=== PATIENT | male | born 1960 | race Caucasian/White ===

== ENCOUNTER 2019-12-10 11:23 | Outpatient (CLI) | payer OTHER, SELFPAY ==
--- NOTE | 2019-12-10 13:27 | PFTS_ITS ---
Date of Study:12/10/19 Date of Dictation: MECHANICS: Forced vital capacity (FVC) is reduced. Forced expiratory volume in one second (FEV1) is normal. FEV1/FVC is normal. FLOW VOLUME LOOP: There is a plateau after the initial peak expiratory flow which could be suggestive of intrathoracic variable obstruction. LUNG VOLUMES: Not performed DIFFUSING CAPACITY FOR CARBON MONOXIDE: Not performed INTERPRETATION: Spirometry is consistent with minimal restriction. The flow volume loop demonstrates a plateau after the peak expiratory flow which could be suggestive of variable intrathoracic obstruction. An endobronchial lesion cannot produce such flow volume loop. MTDD
== END 2019-12-10 11:24 | disposition home or self-care (01) ==
LOC: RT 11:29
PROVIDERS: PCP Nurse Practitioner Family; Visit Provider Nurse Practitioner Family
DX: R05 Cough (principal)
CPT/HCPCS: 94010

== ENCOUNTER 2021-06-08 14:06 | Outpatient (CLI) | payer OTHER, SELFPAY ==
--- NOTE | 2021-06-08 14:14 | XR_ITS ---
WS: [id number] Exam: [place] [id number] Date/Time of Exam: 06/08/2021 2:14 PM Reason For Exam: PAIN IN LEFT UPPER ARM Findings: There are no fractures or bone anomalies. The bony elements are in adequate alignment. There are no soft tissue calcifications or infiltration. The joint spaces are smooth and intact. XR/[place] [id number] IMPRESSION: Negative left humerus.
== END 2021-06-08 14:07 | disposition home or self-care (01) ==
PROVIDERS: PCP Nurse Practitioner Family; Visit Provider Family Medicine
DX: M79.622 Pain in left upper arm (principal)
CPT/HCPCS: 73060

== ENCOUNTER 2022-03-10 10:27 | Emergency (ER) | payer OTHER, SELFPAY ==
--- NOTE | 2022-03-10 10:34 | XRR_ITS ---
PROCEDURE INFORMATION: Exam: XR Chest Exam date and time: 03/10/2022 11:06 AM Age: 61 years old Clinical indication: Chest pain/pressure. TECHNIQUE: Imaging protocol: Radiologic exam of the chest. Views: 1 view. COMPARISON: No relevant prior studies available. FINDINGS: Lungs: No pulmonary consolidation. Pleural spaces: No pleural effusion. No pneumothorax. Heart/Mediastinum: The cardiac silhouette is unremarkable. No gross evidence of pneumomediastinum. Bones/joints: No gross fracture. XR/XR chest 1V portable [id number] IMPRESSION: No acute cardiopulmonary abnormality identified.
--- NOTE | 2022-03-10 10:34 | XRR_ITS ---
PROCEDURE INFORMATION: Exam: XR Abdomen Exam date and time: 03/10/2022 11:06 AM Age: 61 years old Clinical indication: Generalized abdominal pain with diarrhea. Appendicitis. TECHNIQUE: Imaging protocol: Radiologic exam of the abdomen. Views: Frontal supine view of the abdomen. 1 View. COMPARISON: [facility] Abdomen Limited 10/16/2018 9:21 AM FINDINGS: Gastrointestinal tract: No gross small bowel obstruction by plain radiograph. Intraperitoneal space: No definite free air. Bones/joints: No gross acute fracture. XR/XR KUB portable [id number] IMPRESSION: 1. Suboptimal plain radiographs with incomplete evaluation of the abdomen. 2. Ileitis and possible partial small bowel obstruction identified on CT are not well visualized by plain radiograph. Findings discussed with BARBER WEAVER at 03/10/2022 12:23 PM CDT.
--- NOTE | 2022-03-10 10:35 | ECG_ITS ---
[facility] Test Date: 2022-03-10 Pat Name: Derek Jaquez Department: Room: Gender: Male Information Consultant: : 1960 Requested By: Chucky Jo Order Number: [id number] Akash MD: Hakeem Mccrary M.D. Measurements Intervals [place] Rate: 90 P: 26 RI: 168 QRS: 15 QRSD: 105 T: 8 QT: 355 QTc: 435 Interpretive Statements SINUS RHYTHM No previous ECG available for comparison Electronically Signed On 03-10-2022 13:16:45 CDT by Hakeem Mccrary M.D. [id number]
[2022-03-10 10:36] VITALS: BP 120/80; PULSE 86; RESP 18; TEMP 36.5; O2SAT 99; BMI 27.9
--- NOTE | 2022-03-10 10:59 | ED_ITS ---
HPI - Chest Pain General: Chief Complaint: Chest Pain Stated Complaint: Chest pain Time Seen by Provider: 03/10/22 10:34 History of Present Illness: 61-year-old male presents with generalized malaise, chest pain, shortness of breath, diarrhea. He reports his symptoms started during the night. The had an episode of some chills, feeling cold clammy. Last week he was having some problems with abdominal pain in which he was doubled over with pain. That the pain subsided. He denies any nausea or vomiting. Patient also complains of just generalized weakness and not feeling well. He has no known sick contacts. Associated symptoms: Reports dyspnea; Deny abdominal pain, nausea or vomiting Review of Systems Const: Reports: chills, fatigue and malaise Eyes: Denies: change in vision or photophobia ENMT: Denies: throat pain or ear or mastoid pain Card: Reports: chest pain; Denies: edema or lightheadedness Resp: Reports: dyspnea; Denies: productive cough or wheezing GI: Reports: diarrhea; Denies: abdominal pain, nausea or vomiting : Denies: flank pain or difficulty urinating Musc: Denies: neck pain or back pain Skin/Breast: Denies: rash or pruritus Neuro: Reports: other (Generalized weakness); Denies: headache(s) or numbness in extremities Physical Exam Const: COMMON NORMALS: no acute distress and patient oriented x3 GENERAL APPEARANCE: not in distress HENMT: COMMON NORMALS: hearing grossly normal bilaterally and moist oral mucous membranes Eye: COMMON NORMALS: Equal, round and reactive pupils present and EOMs intact bilaterally PUPIL: Yes Equal, round and reactive pupils present Resp: COMMON NORMALS: normal respiratory effort, No use of accessory muscles and clear to auscultation bilaterally AUSCULTATION: clear to auscultation bilaterally Cardio: COMMON NORMALS: regular rate and regular rhythm RATE: regular rate RHYTHM: regular rhythm GI: COMMON NORMALS: Normal to inspection, nondistended, normoactive bowel sounds present and Soft to palpation PALPATION: Yes Soft to palpation Extremity: COMMON NORMALS: normal to inspection, full ROM and capillary refill normal Neuro: COMMON NORMALS: patient oriented x3, CN's II-XII intact bilaterally, moves all extremities, no focal motor deficits and no sensory deficits noted Psych: COMMON NORMALS: mental status grossly normal, Normal thought process present and cooperative THOUGHT PROCESS: Normal thought process present Skin: COMMON NORMALS: no rashes or lesions noted GENERAL SKIN EXAM: no rashes or lesions noted Course Vital Signs: Vital signs: Vital Signs Temperature 97.7 F 03/10/22 10:36 Pulse Rate 86 03/10/22 10:36 Respiratory Rate 18 03/10/22 10:36 Blood Pressure 120/80 03/10/22 10:36 Pulse Oximetry 99 03/10/22 10:36 Oxygen Delivery Me thod 03/10/22 10:36 MDM - Chest Pain Medical Decision Making Patient with ileitis and possible low-grade partial small bowel obstruction. Patient however still having stool and not having any nausea or vomiting. This time patient would like to try to treat on outpatient basis. I will start him o n Cipro Flagyl with clear liquid diet for couple days. Patient understands that he should return with any nausea and vomiting or increasing abdominal pain without stool. Patient stable. Patient's sodium is likely chronic along with his elevation in AST ALT due to his frequent alcohol use. Patient was stable upon discharge Lab Data : 03/10/22 10:33 03/10/22 10:33 Radiology Impressions Chest X-Ray 03/10/22 10:34 IMPRESSION: No acute cardiopulmonary abnormality identified. KUB X-Ray 03/10/22 10:34 IMPRESSION: 1. Suboptimal plain radiographs with incomplete evaluation of the abdomen. 2. Ileitis and possible partial small bowel obstruction identified on CT are not well visualized by plain radiograph. Findings discussed with BARBER JO at 03/10/2022 12:23 PM CDT. Abdomen/Pelvis CT 03/10/22 11:31 IMPRESSION: 1. Wall thickening of numerous distal small bowel loops suspicious for ileitis. 2. A few dilated loops of bowel proximal to the site of inflammation suggesting superimposed low-grade partial small bowel obstruction. 3. The bladder wall is thickened. Considerations include partial bladder outlet obstruction or cystitis. Correlate with urinalysis. 4. Indeterminate right renal lesion. Recommend nonemergent MR abdomen renal mass protocol with and without contrast to better characterize. 5. Hepatomegaly. 6. Solid pulmonary nodules measuring up to 4 mm. As per Fleischner Society 2017 guidelines for follow-up and management of pulmonary nodules: For patients at low risk (minimal or absent history of smoking and of other known risk factors), no routine follow-up. For patient at high risk (history of smoking or of other known risk factors), recommend optional CT at 12 months. 7. Mild free fluid. COMMENTS: Consistent with the [employer]'s Incidental Findings Committee white paper (J Am Marjorie Radiol 2018): Any incidental renal lesion less than 1 cm or classified as too small to characterize, or any incidental cystic renal lesion characterized as simple-appearing, is likely benign. No follow-up imaging is recommended for these lesions per consensus recommendations based on imaging criteria. ADDENDUM: 03/10/22 1226 Findings discussed with BARBER JO at 03/10/2022 12:23 PM CDT. Laboratory Results WBC 11.8 10^3/uL (4.0-10.0) H 03/10/22 10:33 RBC 4.88 10^6/uL (4.1-5.3) 03/10/22 10:33 Hgb 15.5 g/dL (11.7-16.6) 03/10/22 10:33 Hct 45.1 % (42.0-52.0) 03/10/22 10:33 MCV 92.4 fl (80-94) 03/10/22 10:33 MCH 31.8 pg (28.0-34.0) 03/10/22 10:33 MCHC 34.4 g/dL (30.0-36.0) 03/10/22 10:33 RDW 12.1 % (12.1-15.1) 03/10/22 10:33 Plt Count 319 10^3/cmm (130-400) 03/10/22 10:33 MPV 10.5 fL (7.4-10.4) H 03/10/22 10:33 Neut % (Auto) 79.0 % 03/10/22 10:33 Lymph % (Auto) 11.0 % 03/10/22 10:33 Luna % (Auto) 8.9 % 03/10/22 10:33 Eos % (Auto) 0.3 % 03/10/22 10:33 Baso % (Auto) 0.5 % 03/10/22 10:33 Neut # (Auto) 9.36 10^3/uL (1.8-7.7) H 03/10/22 10:33 Lymph # (Auto) 1.3 10^3/uL (0.8-4.8) 03/10/22 10:33 Luna # (Auto) 1.1 10^3/uL (0.2-0.9) H 03/10/22 10:33 Eos # (Auto) 0.0 10^3/uL (0.0-0.8) 03/10/22 10:33 Baso # (Auto) 0.1 10^3/uL (0.0-0.1) 03/10/22 10:33 Nucleated RBC % (auto) 0 % 03/10/22 10:33 Nucleated RBCs # 0.0 /100WBC 03/10/22 10:33 Sodium 126 mmol/L (136-145) L 03/10/22 10:33 Potassium 3.8 mmol/L (3.5-5.1) 03/10/22 10:33 Chloride 89 mmol/L (98-107) L 03/10/22 10:33 Carbon Dioxide 21 mmol/L (22-29) L 03/10/22 10:33 Anion Gap 19.8 (5-19) H 03/10/22 10:33 BUN 13 mg/dL (8-23) 03/10/22 10:33 Creatinine 1.7 mg/dL (0.7-1.2) H 03/10/22 10:33 GFR Calculation 41.2 mL/min (90-130) L 03/10/22 10:33 Glucose 186 mg/dL (65-115) H 03/10/22 10:33 Calculated Osmolality 267 mOsm/kg (285-295) L 03/10/22 10:33 Calcium 9.4 mg/dL (8.5-10.5) 03/10/22 10:33 Magnesium 1.7 mg/dL (1.7-2.3) 03/10/22 10:33 Total Bilirubin 0.5 mg/dL (0.15-1.2) 03/10/22 10:33 AST 78 U/L (0-40) H 03/10/22 10:33 ALT 131 U/L (0-41) H 03/10/22 10:33 Alkaline Phosphatase 126 U/L (40-130) 03/10/22 10:33 Troponin T Baseline 12 ng/L (0-15) 03/10/22 10:33 C-Reactive Protein 3.8 mg/L (0.0-4.9) 03/10/22 10:33 Total Protein 7.9 g/dL (6.6-8.7) 03/10/22 10:33 Albumin 4.9 g/dL (3.5-5.2) 03/10/22 10:33 Globulin 3.0 g/dL (1.3-4.6) 03/10/22 10:33 Lipase 28 U/L (13-60) 03/10/22 10:33 EKG Data EKG 1: I personally reviewed and interpreted this EKG as follows: EKG interpretation date: 03/10/22 Interpretation: Normal sinus rhythm, heart rate 90, NE 168, QTc 402, no acute ST or T wave changes, normal EKG Discharge Plan Discharge Patient Disposition: Home Clinical Impression: Ileitis Condition: Stable Prescriptions: New ciprofloxacin HCl [Cipro] 500 mg tablet 500 mg PO BID Qty: 14 0RF metronidazole 500 mg tablet 500 mg PO BID 7 Days Qty: 14 0RF Discharge Orders: Discharge ED (Routine); Ordered 03/10/22 Ordered By: Barber Jo Referrals: Edward Mayorga DO [Primary Care Provider] - Discharge Diet: Clear Liquid Discharge Activity: Increase activity as tolerated Patient Instructions: Opioid Safety Activity Restrictions/Additional Instructions: Please use clear liquid diet for 48 hours and advance as tolerated. Return to ER with any increasing abdominal pain, vomiting or any other concerns. Please follow-up with your primary care provider towards in the next week for recheck Stand Alone Forms: Work/School Release Coding Level of Care Code ED Release And Technical Records Clerk for Marisabel Fwd Exam Comprehensive
[2022-03-10 11:04] LABS: Basophils # 0.1 10^3/uL (0.0-0.1); Basophils % 0.5 %; Eosinophils % 0.3 %; Hematocrit 45.1 % (42.0-52.0); Hemoglobin 15.5 g/dL (11.7-16.6); Lymphocytes # 1.3 10^3/uL (0.8-4.8); Mean Corpuscular HGB Conc 34.4 g/dL (30.0-36.0); Mean Corpuscular Hemoglobin 31.8 pg (28.0-34.0); Mean Corpuscular Volume 92.4 fl (80-94); Mean Platelet Volume 10.5 fL (7.4-10.4); Monocytes # 1.1 10^3/uL (0.2-0.9); Monocytes % 8.9 %; Neutrophils # 9.36 10^3/uL (1.8-7.7); Nucleated Red Blood Cells % 0 %; Platelet Count 319 10^3/cmm (130-400); Red Blood Count 4.88 10^6/uL (4.1-5.3); Red Cell Distribution Width 12.1 % (12.1-15.1); White Blood Count 11.8 10^3/uL (4.0-10.0)
[2022-03-10 11:17] LABS: Alanine Aminotransferase 131 U/L (0-41); Albumin Level 4.9 g/dL (3.5-5.2); Alkaline Phosphatase 126 U/L (40-130); Anion Gap 19.8 (5-19); Aspartate Amino Transferase 78 U/L (0-40); Blood Urea Nitrogen 13 mg/dL (8-23); C Reactive Protein 3.8 mg/L (0.0-4.9); Calcium 9.4 mg/dL (8.5-10.5); Carbon Dioxide 21 mmol/L (22-29); Chloride 89 mmol/L (98-107); Creatinine Clr Calc Pharmacy 54.1744; Glomerular Filtration Rate 41.2 mL/min (90-130); Glucose 186 mg/dL (65-115); Lipase 28 U/L (13-60); Magnesium 1.7 mg/dL (1.7-2.3); Osmolality Calculated 267 mOsm/kg (285-295); Potassium 3.8 mmol/L (3.5-5.1); Sodium 126 mmol/L (136-145); Total Bilirubin 0.5 mg/dL (0.15-1.2); Total Protein 7.9 g/dL (6.6-8.7)
[2022-03-10 11:18] LABS: Troponin(5th) Baseline 12 ng/L (0-15)
[2022-03-10] MEDS: sodium chloride 0.9% 1,000 ML 999 ML IV (11:24)
--- NOTE | 2022-03-10 11:31 | CTR_ITS ---
PROCEDURE INFORMATION: Exam: CT Abdomen And Pelvis Without Contrast Exam date and time: 03/10/2022 11:51 AM Age: 61 years old Clinical indication: Generalized abdominal pain. Appendicitis. TECHNIQUE: Imaging protocol: Computed tomography of the abdomen and pelvis without contrast. Radiation optimization: All CT scans at this facility use at least one of these dose optimization techniques: automated exposure control; mA and/or kV adjustment per patient size (includes targeted exams where dose is matched to clinical indication); or iterative reconstruction. COMPARISON: CR (ABDOMEN, ) 03/10/2022 11:06 AM RADIATION DOSE METRICS: Total DLP (mGy-cm): 873.72 FINDINGS: Lungs: There is a few small nodules at the right base measuring up to 4 mm. Solid pulmonary nodule in the left lower lobe measuring 2.9 mm. No pericardial effusion. Small hiatal hernia. Liver: The liver is enlarged measuring 19.9 cm. Gallbladder and bile ducts: The gallbladder is unremarkable. Pancreas: The pancreas is unremarkable. Spleen: The spleen is unremarkable. Adrenal glands: The adrenal glands are unremarkable. Kidneys and ureters: A simple left renal cyst measures 1.8 cm. No nephrolithiasis or hydronephrosis. Indeterminate right renal lesion measuring 1.3 cm. Stomach and bowel: There is wall thickening of numerous distal small bowel loops suspicious for ileitis. There are a few dilated loops of bowel proximal to the site of inflammation suggesting superimposed low-grade partial small bowel obstruction. The colon is unremarkable. Appendix: The appendix is not identified. Intraperitoneal space: No free intraperitoneal air is seen. Mild free pelvic fluid. Vasculature: No abdominal aortic aneurysm. Lymph nodes: No retroperitoneal lymphadenopathy. Urinary bladder: The bladder wall is thickened. Reproductive: The prostate measures 3.8 x 5.4 cm. Bones/joints: No acute fracture is seen. Soft tissues: Small fat containing umbilical hernia. Small fat containing left inguinal hernia. CT/CT abdomen pelvis wo con [id number] IMPRESSION: 1. Wall thickening of numerous distal small bowel loops suspicious for ileitis. 2. A few dilated loops of bowel proximal to the site of inflammation suggesting superimposed low-grade partial small bowel obstruction. 3. The bladder wall is thickened. Considerations include partial bladder outlet obstruction or cystitis. Correlate with urinalysis. 4. Indeterminate right renal lesion. Recommend nonemergent MR abdomen renal mass protocol with and without contrast to better characterize. 5. Hepatomegaly. 6. Solid pulmonary nodules measuring up to 4 mm. As per Fleischner Society 2017 guidelines for follow-up and management of pulmonary nodules: For patients at low risk (minimal or absent history of smoking and of other known risk factors), no routine follow-up. For patient at high risk (history of smoking or of other known risk factors), recommend optional CT at 12 months. 7. Mild free fluid. COMMENTS: Consistent with the [employer]'s Incidental Findings Committee white paper (J Am Majrorie Radiol 2018): Any incidental renal lesion less than 1 cm or classified as too small to characterize, or any incidental cystic renal lesion characterized as simple-appearing, is likely benign. No follow-up imaging is recommended for these lesions per consensus recommendations based on imaging criteria.
[2022-03-10 12:52] VITALS: BP 120/73; PULSE 79; RESP 18; O2SAT 99
[2022-03-10 13:02] LABS: Adenovirus Not Detected (NOT DETECT); Chlamydia Pneumoniae Not Detected (NOT DETECT); Coronavirus 229E,HKU1,NL63,OC4 Not Detected (NOT DETECT); Human Metapneumovirus Not Detected (NOT DETECT); Human Rhinovirus/Enterovirus Not Detected (NOT DETECT); Influenza A Not Detected (NOT DETECT); Influenza A H1 Not Detected (NOT DETECT); Influenza A H1-2009 Not Detected (NOT DETECT); Influenza A H3 Not Detected (NOT DETECT); Influenza B Not Detected (NOT DETECT); Mycoplasma Pneumoniae Not Detected (NOT DETECT); Parainfluenza Virus Type 1 Not Detected (NOT DETECT); Parainfluenza Virus Type 2 Not Detected (NOT DETECT); Parainfluenza Virus Type 3 Not Detected (NOT DETECT); Parainfluenza Virus Type 4 Not Detected (NOT DETECT); Respiratory Syncytial Virus A Not Detected (NOT DETECT); Respiratory Syncytial Virus B Not Detected (NOT DETECT); SARS-COV-2 Not Detected (NOT DETECT)
== END 2022-03-10 12:55 | disposition home or self-care (01) ==
PROVIDERS: Emergency Provider Student in an Organized Health Care Education/Training Program; PCP Family Medicine
DX: K52.9 Noninfective gastroenteritis and colitis, unspecified (principal); Z20.822 Contact with and (suspected) exposure to COVID-19
CPT/HCPCS: 71045; 74018; 74176; 80053; 83690; 83735; 84484; 85025; 86140; 87635; 93005; 96360; 99285; J7030

== ENCOUNTER 2022-05-17 07:40 | Outpatient (CLI) | payer OTHER, SELFPAY ==
--- NOTE | 2022-05-17 07:49 | MR_ITS ---
WS: [id number] MRI ABDOMEN with and without CONTRAST. COMPARISON: CT 03/10/2022 Multiplanar, multisequence imaging is performed with and without contrast. MultiHance 20 mL IV. Kidneys are normal size. Bilateral cortical renal cysts are identified. Numerous small cysts within e ach kidneys do not enhance. The largest measures 12 mm in the upper pole LEFT kidney. There is a sing le lesion measuring 8 mm in the posterior mid RIGHT kidney which is T1 hyperintense but does not enha nce. This is probably a hemorrhagic cyst. Low signal on the T2 sequences. No solid enhancing masses o r obstruction. Liver and spleen are normal size. Normal appearance of the gallbladder and common bile duct. Normal a drenal glands. Normal pancreas. No ascites or adenopathy. MR/MR abdomen wo/w con* [id number] IMPRESSION: 1. Numerous bilateral cortical cysts within each kidney. There is one hemorrha gic cyst in the posterior RIGHT kidney which does not enhance. 2. No solid mass or obstruction.
== END 2022-05-17 07:41 | disposition home or self-care (01) ==
PROVIDERS: PCP Nurse Practitioner Family; Visit Provider Nurse Practitioner Family
DX: N28.89 Other specified disorders of kidney and ureter (principal); Q61.02 Congenital multiple renal cysts
CPT/HCPCS: 74183

== ENCOUNTER 2023-01-17 09:22 | Outpatient (CLI) | payer OTHER, SELFPAY ==
--- NOTE | 2023-01-17 09:37 | CTR_ITS ---
PROCEDURE INFORMATION: Exam: CT Abdomen And Pelvis Without And With Contrast Exam date and time: 01/17/2023 10:12 AM Age: 62 years old Clinical indication: Condition or disease; Kidney or ureter condition; Cyst of kidney; Patient HX: Bilateral renal cyst f/u 6-7 months; Additional info: Bilateral renal cysts TECHNIQUE: Imaging protocol: Computed tomography of the abdomen and pelvis without and with contrast. 3D rendering (Not supervised by radiologist): MIP and/or 3D reconstructed images were created by the technologist. Radiation optimization: All CT scans at this facility use at least one of these dose optimization techniques: automated exposure control; mA and/or kV adjustment per patient size (includes targeted exams where dose is matched to clinical indication); or iterative reconstruction. Contrast material: OMNI 350; Contrast volume: 100 ml; Contrast route: INTRAVENOUS (IV); REPORTING DATA: Count of CT and Cardiac NM exams in prior 12 months: This patient has received [address] and 0 known cardiac nuclear medicine studies in the 12 months prior to the current study. COMPARISON: 1. MR abdomen wo/w con* [id number] 05/17/2022 8:[address] abdomen pelvis wo con [id number] 03/10/2022 11:51 AM RADIATION DOSE METRICS: Total DLP (mGy-cm): 2216.15 FINDINGS: Lungs: Mild patchy ground-glass attenuation at the basal right lower lobe with mild nodularity. Suggestion of mild tree-in-bud and ground-glass nodularity at the right middle lobe. Mild ground-glass attenuation at the lingula and medial left lower lobe base. Couple sub 6 mm nodules at the basal left lower lobe, one partially visualized with mild surrounding ground-glass halo. Diaphragm: Small hiatal hernia. Liver: Normal without focal lesions. Gallbladder and bile ducts: Normal. No calcified stones. No ductal dilation. Pancreas: Normal without ductal dilatation. Spleen: Normal. Adrenal glands: Normal. No mass. Kidneys and ureters: Simple left renal cyst is present, as well as other subcentimeter hypodensities which are too small to characterize on this study but were previously shown to represent additional cysts. Stable nonenhancing 1 cm right renal hypodensity (axial image 31) corresponding to hemorrhagic cyst on comparison MRI shows internal attenuation averaging between 60 and 70 Hounsfield units on all pre and postcontrast phases. No calcified stones or hydronephrosis. Normal ureters. Stomach and bowel: No dilatation. No mucosal thickening. Appendix: No evidence of appendicitis. Intraperitoneal space: Subtle stable jejunal mesentery graying with thin pseudocapsule, no suspicious lymphadenopathy, and sparing along the traversing vessels and lymph nodes in keeping with benign process such as sclerosing mesenteritis. No free air, free fluid, or well-organized fluid collection. Vasculature: No abdominal aortic aneurysm. Mild proximal left renal artery atherosclerotic calcification. Lymph nodes: No enlarged lymph nodes. Urinary bladder: Unremarkable as visualized. Reproductive: Unremarkable as visualized. Bones/joints: No acute fracture. Transitional lumbosacral anatomy with bilateral pseudoarticulation. Mild degenerative changes of the lower lumbar spine and sacroiliac joints. Small nonaggressive lucency at the right ilium is stable and may be degenerative or benign fibro-osseous lesion. Soft tissues: Small fat containing umbilical hernia. Mild asymmetric right inguinal bulge. CT/CT abdomen pelvis wo/w [id number] IMPRESSION: 1. Stable bilateral renal cysts, to include nonenhancing hemorrhagic right renal cyst. 2. Mild bilateral lower lung findings may represent infectious or inflammatory bronchiolitis. Recommend CT Chest at 3-6 months. Subsequent management based on the most suspicious nodule(s). (Reference: Mayur) COMMENTS: Consistent with the [employer]'s Incidental Findings Committee white paper (J Am Marjorie Radiol 2018): Any incidental renal lesion less than 1 cm or classified as too small to characterize, or any incidental cystic renal lesion characterized as simple-appearing, is likely benign. No follow-up imaging is recommended for these lesions per consensus recommendations based on imaging criteria. REFERENCES: Mayur Muller et al. Guidelines for Management of Incidental Pulmonary Nodules Detected on CT Images: From the Fleischner Society 2017. Radiology. 2017;284(1):228-243.
[2023-01-17] MEDS: iohexol 350 mg/mL 500 mL Btl (per mL) IV (10:18)
[2023-01-17 10:22] LABS: Blood Urea Nitrogen 9 mg/dL (8-23); Glomerular Filtration Rate 85.5 mL/min (90-130)
== END 2023-01-17 09:23 | disposition home or self-care (01) ==
PROVIDERS: Visit Provider Urology
DX: N28.1 Cyst of kidney, acquired (principal)
CPT/HCPCS: 74178; 82565; 84520; Q9967

== ENCOUNTER 2025-01-21 09:04 | Outpatient (CLI) | payer OTHER, SELFPAY ==
--- NOTE | 2025-01-21 09:18 | US_ITS ---
WS: [id number] RENAL ULTRASOUND HISTORY: BIALT RENAL CYSTS COMPARISON: 01/17/2023 TECHNIQUE: 2-D and color Doppler imaging of the kidney submitted. Right kidney: 12.1 cm x 4.9 cm x 5.0 cm. Cortex: 1.1 cm Normal echogenicity with no hydronephrosis or mass. Tiny cortical cyst mid kidney 0.8 cm. Left kidney: 12.0 cm x 5.2 cm x 5.7 cm. Cortex: 1.4 cm Normal echogenicity with no hydronephrosis or mass. Aorta: Normal. Urinary Bladder: Normal distention. US/US renal BI* [id number] IMPRESSION: 1. Normal size kidneys. 2. Tiny cortical cyst mid RIGHT kidney, 8 mm. 3. No cyst identified LEFT kidney.
== END 2025-01-21 09:05 | disposition home or self-care (01) ==
LOC: RAD 09:09
PROVIDERS: PCP Urology; Visit Provider Urology
DX: N28.1 Cyst of kidney, acquired (principal)
CPT/HCPCS: 76770

== ENCOUNTER 2025-02-10 10:57 | Outpatient (CLI) | payer OTHER, SELFPAY ==
[2025-02-10 12:30] LABS: Prostate Specific Antigen 0.275 ng/mL (0-4)
== END 2025-02-10 10:58 | disposition home or self-care (01) ==
PROVIDERS: PCP Family Medicine; Visit Provider Urology
DX: Z12.5 Encounter for screening for malignant neoplasm of prostate (principal)
CPT/HCPCS: 36415; 84153